=== PATIENT | female | born 1990 | race Caucasian/White ===

== ENCOUNTER 2024-11-24 19:17 | Emergency (ER) | payer OTHER, SELFPAY ==
[2024-11-24 19:20] VITALS: BP 113/67
[2024-11-24 19:47] LABS: % Basophils 0.2 % (0-2); % Eosinophils 0.2 % (0-6); % Immature Granulocytes 0.3 % (0-0.5); % Lymphocytes 7.5 % (20.5-51.1); % Monocytes 5.6 % (1.7-9.3); % Neutrophils 86.2 % (42.2-75.2); Absolute Monocytes 0.8 10^3/uL (0.1-0.6); Absolute Neutrophils 11.9 10^3/uL (1.4-6.5); Hematocrit 37.2 % (37.0-47.0); Hemoglobin 13.3 g/dL (12.0-16.0); Mean Corp Hgb Conc. 35.8 g/dL (33.0-37.0); Mean Corpuscular Hgb 31.4 pg (27.0-31.0); Mean Corpuscular Volume 87.7 fL (81.0-99.0); Mean Platelet Volume 10.2 fL (7.4-10.4); Nucleated Red Blood Cells % 0 %; Platelet Count 261 10^3/uL (130-400); Red Blood Cell Count 4.24 10^6/uL (4.20-5.40); Red Cell Dist. Width 11.9 % (11.5-14.5); White Blood Cell Count 13.8 10^3/uL (4.8-10.8)
[2024-11-24 19:57] LABS: HCG, Serum Qualitative Screen Positive
[2024-11-24 20:01] LABS: ALT (SGPT) 17 U/L (0-35); AST (SGOT) 24 U/L (14-36); Albumin 4.7 g/dl (3.5-5.0); Alkaline Phosphatase 55 U/L (38-126); Blood Urea Nitrogen 15 mg/dl (7-17); Calcium 9.5 mg/dl (8.4-10.2); Carbon Dioxide 20 mmol/L (22-30); Chloride 104 mmol/L (98-107); Glucose 106 mg/dl (70-99); Potassium 4.2 mmol/L (3.5-5.1); Sodium 135 mmol/L (135-145); Total Bilirubin 0.5 mg/dl (0.2-1.3); Total Protein 7.1 g/dl (6.3-8.2); eGFR > 60.00
--- NOTE | 2024-11-24 22:19 | ED.GENMED ---
History of Present Illness
General
Chief Complaint: Problems
Source: patient
Exam Limitations: none
Time Seen by Provider: 11/24/24 21:53
Nursing documentation reviewed up to this point in time: agreed with
History of Present Illness
History of Present Illness:
34 yr old female approx 6 wks (LMP 3/5) presents to the ER for vaginal bleeding. Patient started having some vaginal bleeding this evening prior to arrival. She reports she had black underwear on and she was not initially sure if this
was brown or bright red blood. She has not needed to wear a pad she saw it on the toilet paper on it and in the toilet. There were no clots. She reports minimal cramping. This is patient's first . She has not seen DOUGH SHEETER yet. She
denies any other symptoms.
Patient has a history of thyroid cancer with thyroidectomy and is on thyroid medication. She recently had her thyroid levels checked by her agriculture research director 2 weeks ago.
Review of Systems
Review of Systems
Allergies reviewed?: Yes
All Other Systems: ROS reviewed and negative except as documented in HPI and ROS
Constitutional: Reports no symptoms; Denies fever, fatigue or chills
Respiratory: Reports no symptoms
Cardiac: Reports no symptoms
ABD/GI: Reports no symptoms; Denies nausea or vomiting
: Reports bleeding and other (mild cramping )
Skin: Reports no symptoms
Neurological: Reports no symptoms
Psychiatric: Reports no symptoms
Phy Exam
General Physical Exam
General Presentation: no apparent distress
General Skin: warm and dry
General Habitus: normal
General Mental: alert
General Hydration: appears well hydrated
Gastrointestinal Exam
Gastrointestinal Exam: non tender and soft
Genitourinary Exam Female
Exam Female: other (Internal deferred , external exam performed no active bleeding vaginally )
Neurological Exam
Neurological Exam: alert
Musculoskeletal Exam
Musculoskeletal Exam: full ROM
Skin Exam
Skin Exam: normal color and warm/dry
Course
Orders/Labs/Results
Orders:
Orders
11/24/24 19:22
Test Result ONCE
11/24/24 19:32
Type+Screen Urgent
Beta HCG Quantitative Urgent
Comment: ADD ON
Complete Blood Count/With Diff Urgent
Comprehensive Metabolic Panel Urgent
HCG, Serum Qualitative Screen Urgent
11/24/24 19:58
Add On- LAB Urgent
Tests Added?: HCG Quant.
11/24/24 22:16
US W Transvaginal Urgent
Reason For Exam: vaginal bleeding
11/24/24 23:02
ABO2 Urgent
BBK Wristband Number:
Associate notified that ABO2 has been ordered: [id number]
Date: 11/24/24
Time: 19:49
R D Engineer ID: [id number]
Abnormal Lab Results
11/24/24
19:32
WBC 13.8 H 10^3/uL
(4.8-10.8)
MCH 31.4 H pg
(27.0-31.0)
Absolute Neuts (auto) 11.9 H 10^3/uL
(1.4-6.5)
Absolute Lymphs (auto) 1.0 L 10^3/uL
(1.2-3.4)
Absolute Monos (auto) 0.8 H 10^3/uL
(0.1-0.6)
Neutrophils % 86.2 H %
(42.2-75.2)
Lymphocytes % 7.5 L %
(20.5-51.1)
Carbon Dioxide 20 L mmol/L
(22-30)
Glucose 106 H mg/dl
(70-99)
Antibody Screen Positive A
(Negative)
11/24/24 19:32
11/24/24 19:32
Vital Signs
Initial and Last Documented VS:
Initial Vital Signs
Temp Pulse Resp BP Pulse Ox
98.7 F 79 16 113/67 100
11/24/24 19:20 11/24/24 19:20 11/24/24 19:20 11/24/24 19:20 11/24/24 19:20
Last Documented Vital Signs
Temp Pulse Resp BP Pulse Ox
98.7 F 82 18 119/70 98
11/24/24 19:20 11/24/24 23:02 11/24/24 23:02 11/24/24 23:02 11/24/24 23:02
Information
Weeks gestation: N/A
Location: N/A
MDM/Problems Addressed
Differential Diagnosis Includes:
Not limited to threat miscarriage,, , subchorionic hemorrhage
MDM/Problems Addressed:
Patient presented with complaints of vaginal bleeding no clots questional mild cramping. Patient no acute distress no active bleeding here patient is afebrile white count minimally elevated likely reactive beta-hCG is elevated at 38,816.
Ultrasound performed does show single IUP with a gestational age of 6 weeks 2 days with heart rate of 126, Patient is B+ with a hemoglobin of 13.3.
Patient has made appointment with her DOUGH SHEETER in [place] discussed close outpatient follow-up with DOUGH SHEETER.
As documented patient has a history of thyroid cancer is on thyroid medication and had her levels checked by her agriculture research director 2 weeks ago.
*Radiology
Radiology exam reviewed: radiology read reviewed
*Critical Care Note
Total Time (30-74mins, 75-104mins- exclusive of procedures): Not Applicable
ED Attending Note
-
Portions of this chart may have been created with voice recognition software.� Occasional wrong word or��sound alike� substitutions may have occurred due to the inherent limitations of voice recognition software.
Discharge Plan
Departure
Patient Disposition: Home (Routine Discharge)
Date of Disposition: 11/24/24
Time of Disposition: 23:36
Patient with high blood pressure during this ER visit?: No
Condition: Fair
Covid-19: Not Applicable
Discharge Problem:
Threatened miscarriage
Instructions: Threatened Miscarriage (DC)
Activity Restrictions/Additional Instructions:
Follow-up with your DOUGH SHEETER. Please call tomorrow for an appointment in next several days.
Avoid heavy lifting no sexual intercourse until cleared by DOUGH SHEETER. Return if any worsening of symptoms.
Interventions
Interventions:
*Risk Screen - Suicide Last Done: 11/24/24 19:22
*General Assessment Last Done: 11/24/24 22:26
*Neglect/Abuse Screening Last Done: 11/24/24 19:22
*ED- Fall Risk Assessment Last Done: 11/24/24 22:26
*ED COVID-19 Vaccine History Last Done: 11/24/24 22:26
ED-Female Genitourinary Assessment Last Done: 11/24/24 22:26
Discharge Date and Time
Print Language: GUINEAN
[2024-11-24 22:26] VITALS: BP 124/74
[2024-11-24 23:02] VITALS: BP 119/70
[2024-11-24 23:03] VITALS: BMI 28.8
== END 2024-11-24 23:56 | disposition home or self-care (01) ==
LOC: EMR 19:17
PROVIDERS: Emergency Medicine; EMERGENCY PHYSICIAN Emergency Medicine
DX: O20.0 Threatened abortion (principal); O99.281 Endocrine, nutritional and metabolic diseases complicating pregnancy, first trimester; E89.0 Postprocedural hypothyroidism; Z85.850 Personal history of malignant neoplasm of thyroid; Z3A.01 Less than 8 weeks gestation of pregnancy
CPT/HCPCS: 99284; 76801; 76817; 80053; 84702; 84703; 85025; 86850; 86870; 86900; 86901